=== PATIENT | female | born 1975 | race Caucasian/White ===

== ENCOUNTER 2020-07-27 06:51 | Outpatient (NON) | payer MEDICARE, SELFPAY ==
[2020-07-30 12:32] LABS: SARS-CoV-2 RNA PCR Negative
== END 2020-07-27 06:52 ==
PROVIDERS: PCP Family Medicine; Visit Provider Family Medicine
DX: Z20.828 Contact with and (suspected) exposure to other viral communicable diseases (principal); R05 Cough
CPT/HCPCS: 87635; C9803; U0003

== ENCOUNTER → 2021-07-26 00:28 | Outpatient (CLI) | payer MEDICARE, SELFPAY ==
[2021-07-26 17:30] LABS: SARS-CoV-2 RNA PCR Positive
== END ==
PROVIDERS: PCP Family Medicine; Visit Provider Family Medicine
DX: U07.1 COVID-19 (principal)
CPT/HCPCS: C9803; U0003; U0005

== ENCOUNTER 2021-07-29 07:56 | Outpatient (RCR) | payer MEDICARE, SELFPAY ==
[2021-07-29] MEDS: ACETAMINOPHEN 325 MG TABLET 650 MG PO (08:20)
[2021-07-29] MEDS: diphenhydrAMINE HCl CAP 25 MG CAPSULE PO (08:20)
[2021-07-29] MEDS: FAMOTIDINE 20 MG TABLET PO (08:20)
[2021-07-29 08:48] VITALS: BP 130/85; PULSE 102; RESP 18; TEMP 36.9; O2SAT 99
[2021-07-29 09:41] VITALS: BP 131/82
== END 2021-07-29 10:00 ==
LOC: AMCINF 07:56
PROVIDERS: PCP Family Medicine; Visit Provider Internal Medicine Hematology & Oncology
DX: Z23 Encounter for immunization (principal); U07.1 COVID-19
CPT/HCPCS: A9270; M0243; Q0243